=== PATIENT | female | born 2000 | race Two or more races ===

== ENCOUNTER → 2020-06-25 08:00 | Outpatient (CLI) | payer OTHER | END | disposition home or self-care (01) | LOC: LAB 08:00 → ADM 12:30 → CIR.AMB 07-02 08:30 → EDSTATUS 07-02 12:30 → EDBD 07-02 12:30 | PROVIDERS: ATTEND Colon & Rectal Surgery | DX: U07.1 COVID-19 (principal); L05.01 Pilonidal cyst with abscess; Z01.810 Encounter for preprocedural cardiovascular examination; Z01.812 Encounter for preprocedural laboratory examination ==